=== PATIENT | female | born 1965 | race Caucasian/White ===

== ENCOUNTER 2024-12-21 13:15 | Emergency (ER) | payer MEDICARE, OTHER ==
[~2024-12-21] VITALS: Ht 172.7 cm; Wt 115.0 kg
[2024-12-21] MEDS ORDERED: PIOGLITAZONE HC45 MG PO (13:32)
[2024-12-21] MEDS ORDERED: ATORVASTATIN CA40 MG PO (13:32)
[2024-12-21] MEDS ORDERED: TRULICITY1.5 MG/0.5 SQ (13:32)
[2024-12-21] MEDS ORDERED: GLIPIZIDE ER10 MG PO (13:32)
[2024-12-21] MEDS ORDERED: LOSARTAN POTASS25 MG PO (13:32)
[2024-12-21 16:17] VITALS: BP 148/77
== END 2024-12-21 16:18 | disposition home or self-care (01) ==
LOC: ED 13:15
DX: S20.211A Contusion of right front wall of thorax, initial encounter (principal); M25.511 Pain in right shoulder; W18.30XA Fall on same level, unspecified, initial encounter; Z88.1 Allergy status to other antibiotic agents; Z88.8 Allergy status to other drugs, medicaments and biological substances; Z79.899 Other long term (current) drug therapy
CPT/HCPCS: 71101; 73030; 99283